=== PATIENT | female | born 1975 | race Two or more races ===

== ENCOUNTER → 2016-11-27 | Outpatient (CLI) | payer OTHER ==
--- NOTE | ~2016-11-27 | NDGEN ---
PATIENT'S NAME: MARIE FULLER [facility] AGE: 41 Y [address] ROOM: [place] [id number] LOCATION: [facility] ADMIT DATE: 11/27/2016 Neurodiagnostics DISCHARGE DATE: FAMILY PHYSICIAN: Henrique Brush MD ATTENDING PHYSICIAN: Henrique Brush DATE OF PROCEDURE: 11/27/2016 PROCEDURE PERFORMED: Nerve conduction studies of the bilateral upper extremity and EMG of the right upper extremity. Marie is a 41-year-old female patient who complains about numbness and tingling into the right upper extremity involving the third digit and somewhat involving the fourth digit on the lateral portion. This is likely consistent with a median sensory neuropathy from a physical exam standpoint. The patient has these symptoms that have been ongoing for over a year. Nerve conduction studies were done stimulating the median and ulnar motor and sensory nerves as well as a needle EMG of the right abductor pollicis brevis muscle. The results of the conduction studies show slowing of the right median motor onsets to 5.0 milliseconds with the normal being around 3.5 milliseconds. There was normal motor onset latencies seen in the left upper extremity. Amplitudes were well preserved in both the right and left upper extremity. The ulnar motor and sensory nerve conduction studies were within normal limits. The median sensory study on the right hand was also abnormal with delayed peak onset latencies. Next, a needle EMG was placed into the abductor pollicis brevis muscle and it showed full recruitment of motor unit action potentials and no evidence of any fibrillation potentials. 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 The muscle is well preserved nonetheless with good recruitment of motor unit action potentials. 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 PATIENT'S NAME: MARIE FULLER [facility] AGE: 41 Y [address] ROOM: [place] [address] LOCATION: [facility] ADMIT DATE: 11/27/2016 Neurodiagnostics DISCHARGE DATE: FAMILY PHYSICIAN: Henrique Brush MD ATTENDING PHYSICIAN: Henrique Brush MD LUCIEN RANGEL/brodie /[id number] dtt: 12/03/16 1326 , VESTA TREJO dtd: 11/27/16 1709
== END | disposition disaster alternative care site (69) ==
LOC: GNEU 14:47
DX: R20.0 Anesthesia of skin (principal); G56.11 Other lesions of median nerve, right upper limb; R20.2 Paresthesia of skin